=== PATIENT | female | born 1960 | race Caucasian/White ===

== ENCOUNTER 2016-11-07 08:24 | Emergency (ER) | payer MEDICARE ==
[~2016-11-07 08:24] MED LIST: ADULT LOW DOSE81 M1 PO; ADULT LOW DOSE81 MG PO; AGGRENOX 25 MG-1 CAP PO; AMARYL4 MG PO; AMLODIPINE BESYL5 MG PO; AMOXICILLIN500 M2 PO; AMOXICILLIN875 M1 PO; ASPIRIN81 M1 PO; ASPIRIN81 MG PO; ATORVASTATIN CA10 MG PO; AUGMENTIN 875-1 EAC2 PO; AUGMENTIN875 MG PO; B-121000 MCG PO; BABY ASPIRIN81 MG PO; CARVEDILOL12.5 MG PO; CELEXA; CELEXA10 MG PO; CELEXA40 M2 PO; CIPRO500 MG PO; CLARITIN-D 121 EAC1 PO; COREG12.5 MG PO; COREG25 M1 PO; COUMADIN5 M1 PO; CRANBERRY300 MG PO; CRESTOR; CRESTOR10 MG/TAB PO; CULTURELLE1 CA1 PO; DESYREL50 MG PO; EFFEXOR XR75 MG PO; FLAGYL500 MG PO; GLIPIZIDE5 M1 PO; GLIPIZIDE5 M2 PO; GLUCAGON EMERGEN1 MG IM; GLUCOPHAGE1000 MG PO; H; HYDROCHLOROTHIA25 MG PO; INSULIN SYRING1 EA10 MC; INVANZ1 G/VIA1 IV; KEFLEX500 M4 PO; KEFLEX500 MG PO; LANTUS100 U/ML SC; LANTUS100 UNITS/ SC; LEVAQUIN500 M1 PO; LEVAQUIN500 MG PO; LEVAQUIN750 MG; LEXAPRO20 M1 PO; LEXAPRO20 M2 PO; LISINOPRIL-HC PO; LISINOPRIL-HCT1 EAC2 PO; LISINOPRIL20 MG PO; LOW-DOSE ASPIRI81 MG; MECLIZINE HCL25 M3 PO; METFORMIN HCL1000 M2 PO; METFORMIN HCL1000 MG PO; MIRALAX17 G2 PO; MULTIVITAMIN1 TAB PO; NORCO 5-325 TA1 EACH PO; NORCO 5/3251 TA2 PO; NORCO 5/3251 TAB PO; NORVASC5 M1 PO; NORVASC5 MG PO; NOVOLOG100 U/M; NOVOLOG100 U/M SQ; NOVOLOG100 UNITS/ SC; ONE DAILY1 EAC1 PO; PLAVIX75 M1 PO; PLAVIX75 MG PO; PRENATAL VITAMI1 TAB; PREVACID 24HR15 MG PO; PROBIOTIC1 EAC4 PO; SENOKOT-S TABL1 EACH PO; SIMVASTATIN40 M1 PO; SULFAMYLON453.6 GM TP; SULFAMYLON60 GM EXT; TRAZODONE HCL150 M1 PO; TRAZODONE100 MG PO; TYLENOL325 MG PO; VASOTEC20 MG; VITAMIN C PO; VITAMIN D-1000 UNIT2 PO; VITAMIN D1000 UNIT PO; VITAMIN D32000 UNI3 PO; ZANAFLEX2 M3 PO; ZOFRAN ODT4 MG PO
[2016-11-07 09:43] LABS: BASO % 0.2 % (0-2); EOSINOPHIL ABSOLUTE COUNT 0.1 tho/cmm (0.0-0.7); HCT-HEMATOCRIT 43.3 % (34.0-49.0); HGB-HEMOGLOBIN 14.1 gm/dl (12.0-15.5); IMMATURE GRANULOCYTES ABSOLUTE 0.03 tho/cmm (0-0.03); IMMATURE GRANULOCYTES PERCENT 0.3 % (0-0.3); LYMPH ABSOLUTE COUNT 1.3 tho/cmm (0.8-4.5); MCHC MEAN CORPUSCULAR HGB CONC 32.6 % (32.0-36.0); MCV (MEAN CELL VOLUME) 92.1 fl (82.0-96.0); MEAN PLATELET VOLUME 9.8 cmc (9.4-12.4); MONO % 7.3 % (0-12); MONOCYTE ABSOLUTE COUNT 0.6 tho/cmm (0.0-1.2); NEUTROPHIL ABSOLUTE COUNT 6.6 tho/cmm (1.6-8.0); NEUTROPHIL-AUTOMATED 6.6 tho/cmm (1.6-8.0); NEUTROPHILS % 76.2 % (40-80); PLATELET COUNT 280 tho/cmm (150-450); RED CELL DISTRIBUTION WIDTH 13.6 % (12.4-16.4); WHITE BLOOD COUNT 8.7 tho/cmm (4.0-10.0)
[2016-11-07 09:51] LABS: ANION GAP 11 mmol/L (0-20); BLOOD UREA NITROGEN 14 mg/dl (6-24); C-REACTIVE PROTEIN 8.9 mg/dl (0-0.9); CALCIUM 9.3 mg/dl (8.5-10.5); CARBON DIOXIDE-VENOUS 31 mmol/L (22-32); CHLORIDE 98 mmol/l (96-110); CREATININE 0.96 mg/dl (0.50-1.10); GLUCOSE 174 mg/dL (70-110); SODIUM 135 mmol/L (135-145); eGFR VALUE FOR BLACK 77 mL/Min
[2016-11-07 09:53] LABS: POTASSIUM 4.6 mmol/L (3.7-5.1)
[2016-11-07 10:08] LABS: ESR-ERYTHROCYTE SED RATE 44 mm/hr (0-30)
[2016-11-07 10:30] LABS: PROCALCITONIN 0.05 ng/ml (0.05-0.09)
[2016-11-07] MEDS ORDERED: AUGMENTIN 875-1 EAC2 PO (12:01)
[2016-11-07] MEDS ORDERED: NORCO 5-325 TA1 EACH PO (12:03)
[2016-11-15] MEDS ORDERED: CUBICIN RF500 MG IV (13:22)
== END 2016-11-07 13:07 ==
LOC: EDMED 08:24
PROVIDERS: Emergency Medicine
DX: S91.301A Unspecified open wound, right foot, initial encounter (principal); L08.9 Local infection of the skin and subcutaneous tissue, unspecified; E11.9 Type 2 diabetes mellitus without complications; I10 Essential (primary) hypertension; E78.5 Hyperlipidemia, unspecified; E66.9 Obesity, unspecified; Z86.73 Personal history of transient ischemic attack (TIA), and cerebral infarction without residual deficits; Z79.4 Long term (current) use of insulin; Z79.899 Other long term (current) drug therapy; Z79.82 Long term (current) use of aspirin; F17.200 Nicotine dependence, unspecified, uncomplicated; X58.XXXA Exposure to other specified factors, initial encounter
CPT/HCPCS: J2185; J7030